=== PATIENT | male | born 1955 | race Caucasian/White ===

== ENCOUNTER 2019-10-05 19:55 | Emergency (ER) | payer OTHER ==
[~2019-10-05] VITALS: Ht 182.9 cm; Wt 106.6 kg
[2019-10-05] MEDS ORDERED: DIOVAN160 MG PO (20:06)
[2019-10-05] MEDS ORDERED: EFFEXOR XR150 MG PO (20:06)
[2019-10-05] MEDS ORDERED: BLOOD PRESSURE (20:06)
[2019-10-05] MEDS ORDERED: NORCO 5-325 TA1 EAC1 PO (21:04)
[2019-10-05] MEDS ORDERED: IBUPROFEN 600600 M1 PO (21:04)
[2019-10-05 21:21] VITALS: BP 142/80
== END 2019-10-05 21:22 | disposition home or self-care (01) ==
LOC: M.ERS 19:55
DX: M25.512 Pain in left shoulder (principal); I10 Essential (primary) hypertension; Z90.49 Acquired absence of other specified parts of digestive tract

== ENCOUNTER 2020-06-14 16:18 | Emergency (ER) | payer OTHER ==
[~2020-06-14] VITALS: Ht 182.9 cm; Wt 108.9 kg
[~2020-06-14 16:18] MED LIST: BLOOD PRESSURE; DIOVAN160 MG PO; EFFEXOR XR150 MG PO; IBUPROFEN 600600 M1 PO; NORCO 5-325 TA1 EAC1 PO
[2020-06-14] MEDS ORDERED: IBUPROFEN 800800 M1 PO (17:36)
[2020-06-14] MEDS ORDERED: PERCOCET PO (17:36)
[2020-06-14 18:07] VITALS: BP 120/74
== END 2020-06-14 18:08 | disposition home or self-care (01) ==
LOC: M.ERS 16:18
DX: M25.512 Pain in left shoulder (principal); I10 Essential (primary) hypertension; Z90.49 Acquired absence of other specified parts of digestive tract